=== PATIENT | female | born 2000 | race Caucasian/White ===

== ENCOUNTER 2019-06-19 23:23 | Emergency (ER) | payer BC, SELFPAY ==
[2019-06-19 23:24] VITALS: BP 141/84; PULSE 96; RESP 19; TEMP 36.8; O2SAT 100; BMI 25.2
--- NOTE | 2019-06-20 00:23 | ED.VISSUMM ---
- ER Visit Summary Date of Service: 06/20/19 Chief Complaint: Diarrhea History of Present Illness: The patient is a 18 F who presents with diarrhea. She does have a history of ulcerative colitis. Her physicians are in [place] but she is a [employer] student. She has had increased diarrhea for the past week and began to have some blood in the stool today. She complains of generalized abdominal pain which she describes as tightness. She also complains of fatigue. She complains of headache. She was advised by her claim clinician to be evaluated in the emergency department. Physical Examination: Afebrile vitals unremarkable Moist mucous membranes Heart regular rate and rhythm Lungs clear Abdomen soft nondistended with some mid and upper abdominal tenderness no guarding no rebound Test Results: CBC, CMP, ESR, CRP normal. negative.. Emergency Department Course and Treatment: Patient was treated here with IV fluids, Toradol, Zofran. Although her work-up is unremarkable given her history of ulcerative colitis with complaints of increased diarrhea blood in stool we will treat with a burst of prednisone. She was advised to follow-up with her claim clinician and was discharged home. Treatment Plan: [] Disposition: Discharge Impression: Ulcerative colitis This note was generated with [employer] dictation software. It may contain incorrect words, spelling, and punctuation that were not noted in review of the chart prior to signing ED Disposition - Plan for ED Patient: Referrals: [facility] Doctor,Out of [NON-STAFF] -
[2019-06-20 01:22] LABS: Absolute Lymphocyte Count 2.15 X10^3/uL (0.83-4.51); Absolute Neutrophil Count 3.9 X10^3/uL (2.0-7.7); Basophil# 0.03 X10^3/uL; Basophil% 0.4 % (0-1); Eosinophil# 0.07 X10^3/uL; Hematocrit 39.1 % (37-47); Hemoglobin 14.1 g/dL (12.0-15.0); Lymphocyte # 2.15 X10^3/ul (4.0); Lymphocyte % 32.2 % (19-41); Mean Corp Hgb Conc 36.1 g/dL (32-36); Mean Corpuscular Hgb 35.1 pg (27.0-32.0); Mean Corpuscular Volume 97.3 fL (81-99); Mean Platelet Vol. 10.4 fl (6.2-12.0); Monocyte# 0.48 X10^3/uL; Monocyte% 7.2 % (0-10); NRBC Flagged by Analyzer 0 % (0-5); Neutrophil # 3.94 X10^3/uL (2.7-7.7); Neutrophil % 59.1 % (47-70); Platelet Count 219 K/mm3 (150-450); RBC Distribution Width CV 11.1 % (11.6-14.6); RBC Distribution Width SD 39.4 fl (35.1-43.9); Red Blood Count 4.02 M/mm3 (4.2-5.4); White Blood Count 6.7 K/mm3 (4.4-11.0)
[2019-06-20] MEDS: Ondansetron 4 MG/2 ML Vial IV (01:26)
[2019-06-20] MEDS: Ketorolac 30 MG/ML Syringe IV (01:26)
[2019-06-20 01:27] LABS: Erythrocyte Sedimentation Rate < 1 mm/hr (0-20)
[2019-06-20] MEDS: 0.9% Normal Saline 1,000 ML 999 ML IV (01:28)
[2019-06-20 01:38] LABS: AST(SGOT) 35 U/L (15-37); Alanine Aminotransfer ALT/SGPT 44 U/L (13-56); Albumin, Serum 4.5 g/dL (3.2-5.0); Alkaline Phosphatase 91 U/L (45-117); Anion Gap 7 (5-15); BUN 14 mg/dL (7-18); BUN/Creat Ratio 19.7 RATIO (10-20); Bilirubin, Direct 0.13 mg/dL (0.00-0.30); CRP < 2.90 mg/L (0.0-3.0); Chloride 111 mmol/L (98-107); Creatinine, Serum 0.71 mg/dL (0.55-1.02); EST Glomerular Filtration Rate 111 mL/min (>60); Est Glom Filt Rate - Afr Amer 134 mL/min (>60); Estimated Creatinine Clearance 118.32 ml/min; Globulin 3.1 g/dL (2.2-4.2); Glucose 86 mg/dL (74-106); Potassium 3.6 mmol/L (3.5-5.1); Protein, Total 7.6 g/dL (6.4-8.2); Sodium Level 141 mmol/L (136-145)
[2019-06-20 03:07] LABS: Internal QC Validated? YES +Cl - CLEAR BKGD; Pregnancy, Urine Negative Negative
--- NOTE | 2019-06-20 03:20 | DCINST.ED_ITS ---
ED Disposition - Plan for ED Patient: Instructions: Ulcerative Colitis Prescriptions: Prednisone [Deltasone] 60 mg PO DAILY #15 tab Prescription Printed Referrals: [facility] Doctor,Out of [NON-STAFF] -
[2019-06-20 03:49] VITALS: BP 107/60; PULSE 64; RESP 16; O2SAT 100
[2019-06-20 03:54] VITALS: BP 107/60; PULSE 64; RESP 16; O2SAT 100
== END 2019-06-20 03:56 | disposition home or self-care (01) ==
LOC: ED 06-20 00:36
PROVIDERS: Emergency Provider Emergency Medicine
DX: K51.911 Ulcerative colitis, unspecified with rectal bleeding (principal); G43.909 Migraine, unspecified, not intractable, without status migrainosus; Z79.899 Other long term (current) drug therapy
CPT/HCPCS: 80048; 80076; 81025; 85025; 85652; 86140; 96361; 96374; 96375; 99283; J7030; A4216; J2405